=== PATIENT | female | born 1950 | race Caucasian/White ===

== ENCOUNTER 2016-05-29 05:06 | Inpatient (IN) | payer OTHER ==
[2016-05-16 08:59] LABS: HEMATOCRIT 39.5 % (37.0-47.0); MCH 31.2 pg (26.0-34.0); MCV 94.4 fL (80.0-100.0); RBC 4.18 mil/uL (4.20-5.00); RDW 12.7 % (10.5-14.5); WBC 6.3 thou/uL (4.0-11.0)
[2016-05-16 09:03] LABS: URINE BILIRUBIN NEGATIVE (Negative); URINE BLOOD NEGATIVE (Negative); URINE COLOR YELLOW; URINE GLUCOSE-RANDOM* NEGATIVE (Negative); URINE KETONES NEGATIVE (Negative); URINE LEUKOCYTES-REFLEX NEGATIVE (Negative); URINE PROTEIN (DIPSTICK) NEGATIVE (Negative); URINE UROBILINOGEN 0.2 E.U./dl (0.2-1.0)
[2016-05-16 09:11] LABS: CALCIUM 8.9 mg/dL (8.5-10.1); CREATININE 0.6 mg/dL (0.6-1.3); INR 1.1; POTASSIUM 3.8 mmol/L (3.5-5.1); PROTIME 11.3 Seconds (9.3-11.4)
[2016-05-29] VITALS (8 sets, daily range): BP systolic 117–147; BP diastolic 46–77
[~2016-05-29] VITALS: Ht 154.9 cm; Wt 65.8 kg
--- NOTE | ~2016-05-29 | O ---
[facility] [place] [address] OPERATIVE REPORT Name: CAITIE BANSAL Room #: 541-P ADM IN M.R.#: [id number] Admission: 05/29/16 Attend Phys: Gabino Vernon MD Discharge: Date of : 50 Report #: [id number] THIS REPORT FOR: //name// CC: Gabino Powell MD DATE OF SERVICE: 05/29/2016 PREOPERATIVE DIAGNOSIS: Left knee degenerative joint disease, severe. POSTOPERATIVE DIAGNOSIS: Left knee degenerative joint disease, severe. OPERATIVE PROCEDURE: Left total knee arthroplasty. SURGEON: Gabino Vernon MD PLUMBING INSTRUCTOR: Oscar Portillo, nurse practitioner. INDICATIONS FOR PLUMBING INSTRUCTOR: During the course of operation, extensive manipulation, retraction and limb positioning was required. This was afforded to me by my operating room assistant. ANESTHETIC: General. INDICATIONS: See hospital H and P. IMPLANTS UTILIZED: We used a DePuy PFC knee system. We used a cruciate retaining press fit femoral component size 3, size 2.5 tibial tray with an 8-mm insert and a 35-mm oval dome patella. DESCRIPTION OF PROCEDURE: After adequate general anesthesia had been obtained, the patient's left lower extremity was prepped and draped in the usual meticulous sterile fashion. Limb was examined with gravity and tourniquet inflated to 350 torr. A midline incision was made anteriorly. Subq divided sharply. Hemostasis obtained with electrocautery. Medial parapatellar incision was made. Infrapatellar fat pad excised. Medial release performed. The drill was used to drill the distal femur. This hole was enlarged, irrigated, suctioned, and the intramedullary guide placed the full length of the femur. The distal femoral cutting guide was pinned to appropriate height, rotation and distal femoral cut was made. We used a measuring device and determined the size 3 was appropriate size for this patient. We marked the distal femur, impacted the cutting guide into place and the anterior, posterior and chamfer cuts were made. Rongeur was used to remove additional osteophytes. At this time, the ACL was transected, tibia translated anteriorly, menisci were [facility] [address] [place] [address] OPERATIVE REPORT Name: CAITIE BANSAL Room #: 541-P ADM IN M.R.#: [id number] Admission: 05/29/16 Attend Phys: Gabino Vernon MD Discharge: Date of : 50 Report #: [id number] excised. Drill was used to drill central portion of the tibia. This hole was enlarged, irrigated, suctioned, and the intramedullary guide placed the full length of the tibia. Proximal tibial cutting guide placed at appropriate height. Proximal tibia cut was made. A 2.5 tray gave us the best cover on the tibia. We then put the trial components in position spacer, she had the best flexion and extension gap. Patella tracked normally. At this time, the patella was measured, cutting guide clamped into place, patellar cut was made. A 35-template gave us the best coverage. We drilled the peg holes, trial component put in position and it tracked normally. At this time, the knee was taken through several cycles of flexion and extension to determine the appropriate tibial rotation, it was then marked. The distal femur was drilled. Trial components were removed. Tibial keel cuts were made. The knee was irrigated with both pulse lavage and antibiotic irrigation. Bone plugs were placed in proximal tibia and distal femur. Vacuum mixed the cement and when it reached the appropriate consistency, the knee was thoroughly dried and the tibial tray was cemented into place. Excess cement was removed. The liner was impacted in place and the femur was impacted in place and the knee was taken out to 30 degrees of flexion with uniform compression placed across components. Patellar button was then cemented into place and again excess cement was removed. At this time, the knee was irrigated and irrigation was allowed to rest in the wound until the cement fully cured. When it had done so, the knee was irrigated, dried thoroughly, inspected. Drains were placed superolaterally both deep and superficial. The retinacular layer closed with combination of interrupted [id number]-szyyn #1 Vicryl as well as running #1 Tevdek. SubQ closed with 2-0 Monocryl, skin closed with dar. Sterile compressive dressing applied. Tourniquet deflated. <ELECTRONICALLY SIGNED> By: Gabino Vernon MD 05/29/16 1420 [id number] Gabino Vernon MD /nt
--- NOTE | ~2016-05-29 | H ---
[facility] [address] [place] [address] HISTORY AND PHYSICAL Name: CAITIE BANSAL Room #: 541-P DIS IN M.R.#: [id number] Admission: 05/29/16 Attend Phys: Gabino Vernon MD Discharge: 06/01/16 Date of : 50 Report #: [id number] THIS REPORT FOR: //name// For History and Physical, please see office documentation/handwritten note in the patient's medical record. <ELECTRONICALLY SIGNED> By: Gabino Vernon MD 06/05/16 0735 [id number] Gabino Vernon MD /
[~2016-05-29 05:06] MED LIST: ALEVE220 MG PO; ASPIRIN EC81 M1 PO; CELEXA10 MG PO; CITRACAL + BON1 EACH PO; COLACE100 MG PO; COSAMIN DS TAB1 EACH PO; ESTER-C 500 MG1 EACH PO; EVISTA PO; FISH OIL + D31 EACH PO; FLONASE 0.05%50 MCG NASAL; MULTIVIT &0.5 MG/1 M PO; NYQUILL PO; OCUVITE LUTEIN1 EAC1 PO; PERCOCET 10-321 EACH PO; PROBIOTIC1 EAC1 PO; TURMERIC500 MG PO; TYLENOL325 MG PO; UNICOMPLEX M TA1 TA1 PO; VITAMIN B-121000 MCG PO; VITAMIN C + RO500 MG PO; VITAMIN D-32000 UNIT PO; VITAMIN D31000 UNI2 PO; XARELTO10 MG PO; ZYRTEC10 M5 PO; ZYRTEC10 MG PO
[2016-05-30 03:48] LABS: HEMATOCRIT 37.1 % (37.0-47.0); HEMOGLOBIN 11.9 gm/dL (12.0-15.0); MCH 31.6 pg (26.0-34.0); MCV 98.8 fL (80.0-100.0); RBC 3.75 mil/uL (4.20-5.00); RDW 13.1 % (10.5-14.5); WBC 13.1 thou/uL (4.0-11.0)
[2016-05-30 03:49] VITALS: BP 128/50
[2016-05-30 08:36] VITALS: BP 120/46
[2016-05-30 11:32] VITALS: BP 120/46
[2016-05-30 15:01] VITALS: BP 118/51
[2016-05-30 20:51] VITALS: BP 125/43
[2016-05-31 03:20] VITALS: BP 127/50
[2016-05-31 03:51] LABS: HEMATOCRIT 31.5 % (37.0-47.0); HEMOGLOBIN 10.3 gm/dL (12.0-15.0); MCH 31.2 pg (26.0-34.0); MCHC 32.8 % (28.0-37.0); MCV 95.1 fL (80.0-100.0); RBC 3.31 mil/uL (4.20-5.00); RDW 12.6 % (10.5-14.5); WBC 11.9 thou/uL (4.0-11.0)
[2016-05-31 08:06] VITALS: BP 121/53
[2016-05-31 16:37] VITALS: BP 123/55
[2016-05-31 20:14] VITALS: BP 124/50
[2016-06-01 03:32] VITALS: BP 118/55
[2016-06-01 05:44] LABS: HEMATOCRIT 28.5 % (37.0-47.0); HEMOGLOBIN 9.6 gm/dL (12.0-15.0); MCH 31.7 pg (26.0-34.0); MCHC 33.5 % (28.0-37.0); MCV 94.6 fL (80.0-100.0); RBC 3.01 mil/uL (4.20-5.00); RDW 12.8 % (10.5-14.5)
[2016-06-01] MEDS ORDERED: PERCOCET 10-321 EACH PO (07:13)
[2016-06-01] MEDS ORDERED: XARELTO10 MG PO (07:13)
[2016-06-01 07:45] VITALS: BP 119/54
[2016-06-01 11:10] VITALS: BP 120/46
[2016-06-01 12:03] VITALS: BP 120/46
== END 2016-06-01 13:00 | disposition home health service (06) | DRG 470 ==
LOC: 5S 05:06 → TBA 05:06 → PRE 08:12 → 5S 11:05 → PRE 14:31 → 5S 06-01 13:00
PROVIDERS: Orthopaedic Surgery
PROC: 0SRD0J9 Replacement of Left Knee Joint with Synthetic Substitute, Cemented, Open Approach (ICD-10-PCS; principal; 2016-05-29)
DX: M17.12 Unilateral primary osteoarthritis, left knee (principal); F32.9 Major depressive disorder, single episode, unspecified; M17.11 Unilateral primary osteoarthritis, right knee; M81.0 Age-related osteoporosis without current pathological fracture; Z88.2 Allergy status to sulfonamides; Z88.6 Allergy status to analgesic agent; Z82.49 Family history of ischemic heart disease and other diseases of the circulatory system; Z88.0 Allergy status to penicillin; Z90.11 Acquired absence of right breast and nipple; Z98.890 Other specified postprocedural states; Z79.899 Other long term (current) drug therapy; Z85.3 Personal history of malignant neoplasm of breast; Z82.61 Family history of arthritis
CPT/HCPCS: 10785; 50010; 50101; 50415; 50612; 50954; 51130; 51225; 51320; 51412; 51771; 52001; 52282; 53000; 53078; 53364; 56525; 56527; 62110; 62900; 64037; 70005